=== PATIENT | male | born 1975 | race Caucasian/White ===

== ENCOUNTER 2017-04-29 15:14 | Inpatient (IN) | payer BC ==
[2017-04-29] MEDS: Dextrose 5%-0.45% NaCl 1,000 ML IV SCH (15:45)
[2017-04-29] MEDS: cefTRIAXone 1 GM Vial IVPUSH SCH (15:45)
[2017-04-29] MEDS ORDERED: Ondansetron 4 MG/2 ML SDV IV PRN (16:09)
[2017-04-29] MEDS ORDERED: Sodium Chloride 0.9% 5 ML Syringe FLUSH PRN (16:09)
[2017-04-29] MEDS ORDERED: Ketorolac 30 MG/ML SDV IVPUSH PRN (16:09)
[2017-04-29] MEDS: Nicotine 14 MG/24 Hr Patch TRDERM SCH (18:03)
[2017-04-29] MEDS: Acetaminophen 325 MG Tab PO PRN (22:52)
[2017-04-30] MEDS: Acetaminophen 325 MG Tab PO PRN (06:01)
[2017-04-30 08:01] LABS: CHLORIDE,CL 97 mmol/L (98-115); SODIUM,NA 134 mmol/L (136-145)
[2017-04-30] MEDS: Dextrose 5%-0.45% NaCl 1,000 ML IV SCH ×3 (08:31→16:27)
[2017-04-30] MEDS: Nicotine 14 MG/24 Hr Patch TRDERM SCH (09:53)
[2017-04-30] MEDS: Omeprazole 20 MG Cap.CR PO SCH (12:26)
[2017-04-30] MEDS: cefTRIAXone 1 GM Vial IVPUSH SCH (16:20)
[2017-05-01] MEDS: Dextrose 5%-0.45% NaCl 1,000 ML IV SCH ×2 (01:00→08:45)
[2017-05-01] MEDS: Acetaminophen 325 MG Tab PO PRN (03:20)
[2017-05-01] MEDS: Omeprazole 20 MG Cap.CR PO SCH (06:27)
[2017-05-01] MEDS: Nicotine 14 MG/24 Hr Patch TRDERM SCH (08:44)
--- NOTE | 2017-05-01 10:41 | PN ---
04/30/2017 PATIENT NAME: EBONI RANGEL CHIEF COMPLAINT: Starting to feel better. Still has ongoing abdominal pain. Nurses reported fever last night, T max of 101.3. Blood cultures were drawn, still pending, however, blood pressure is good. Respiratory rate was 16. O2 sats were 94%. He had no nausea or vomiting. He did have a bowel movement this morning. HISTORY: This is a 42-year-old, obese gentleman, was initially seen at [facility], thought to have some infectious process, however, x-rays did show some colon stools. He was treated for constipation; however, the patient did have a subsequent CT of the abdomen, which did show acute cholecystitis, so he was admitted for antibiotics, fluids, GI rest, and for closer monitoring. DIAGNOSTICS: Abdominal x-ray at [facility] did demonstrate interstitial gas pattern, which was unremarkable; however, no significant small bowel distention. There are rounded densities, which appear to be within the bowel, particular the right mid pelvis, possible ingested capsules. Abdominal pelvic CT showed acute cholecystitis with some common bile duct enhancement, some question regarding underlying cholangitis versus distention of the gallbladder with several stones near the neck. Pericholecystic inflammatory changes tracking into the right abdomen; however, there was also biliary dilatation at common bile duct, so they could not rule out cholangitis. LABORATORY DATA: Labs at [facility]; white count 17,000, percentage neutrophils were 70%. Glucose, sodium, BUN and creatinine, calcium, liver functions are all unremarkable. Amylase is low at 46. PHYSICAL EXAMINATION: GENERAL: The patient is alert and oriented. ABDOMEN: He has large body abdomen habitus. He does have good bowel tones. LUNGS: Clear to auscultation. CV: Without murmur. S1-S2 audible. Normal rhythm. Normal rate. Positive Villalba sign. However, slight good bowel tones. Intake and output: Approximately 2900 in with 1000 out. IMPRESSION/PLAN: Acute cholecystitis seemed to be improving clinically. We will continue with Rocephin 1 g every 24 hours. May add bananas and toast to his diet, otherwise he is stay on clear liquids. White count down to 12.3 this morning. The patient most likely will have to have a cholecystectomy in approximately two weeks to one month. Secondary problems include depression, essential hypertension, tobacco use disorder, and hyperlipidemia. OVERALL PLAN: Continue IV fluids. Slowly advance diet. To add bananas and toast to his diet today, clear liquids, ambulate around the clinic. Monitor for fever. We will see if there is any concerning blood culture result to report any worsening fever, any worsening abdominal pain. CBC in the a.m. I consulted with Dr. Morgan Mendoza and he agrees with this plan. /[id number]/MODL
[2017-05-01 11:03] VITALS: BP 122/71
[2017-05-01] MEDS: cefTRIAXone 1 GM Vial IVPUSH SCH (11:46)
--- NOTE | 2017-05-02 09:53 | DISCH ---
FINAL DIAGNOSES: Acute cholecystitis, clinically improving. Obesity. Cholelithiasis. OTHER CHRONIC MEDICAL CONDITIONS: Essential hypertension, stable; Tobacco use disorder, now on replacement therapy; Hyperlipidemia; Depression. BRIEF HISTORY: This 42-year-old gentleman, who had been complaining of some abdominal pain for about 48 to 72 hours prior to being admitted, he had initially seen a provider at the [facility], was treated for some mild constipation and, however, a subsequent CT due to ongoing and persistent pain did demonstrate acute cholecystitis. He had been having some epigastric region pain and also some right upper quadrant pain, so he was admitted in the hospital for further treatment including IV fluids, clear liquids, IV antibiotics of Rocephin and nonsteroidals for pain control, and bowel rest, and monitor for any signs and symptoms of cholangitis. HOSPITAL COURSE: Hospital course went well. He never became hemodynamically unstable, however, he had, had ongoing fevers, even though they were titrating down. Temperature max in the hospital was 101.3. Blood cultures were drawn; after one day growth, no growth. Temperature did titrate down, however, prior to being discharged, he did have a slight fever of 99.4, which was about 4 in the morning prior to being discharged. Blood pressure was 112/71, O2 sats 93%. We were giving IV Rocephin 1 g every 24 hours. LABS: [facility]: White count 17,000 that did trend down, it was 7.9 on discharge. Sodium 134, potassium 3.5. AST, ALT, total bilirubin all normal. Lipase 05/01/2017, in the hospital was 106, which was normal. He was placed on IV fluids. He was well hydrated. We did advance diet day before discharge, to add toast and bananas to his clear liquid diet. The patient did have good bowel tones. His pain was much improved on discharge. He had no jaundice, did have ongoing bowel movements, PPI was given. He was given Toradol. DIAGNOSTICS: Abdominal and pelvis CT on admission showed cholecystitis and CT findings of acute cholecystitis. MEDICATIONS: 1. Nicotine patch replacement therapy on discharge, (newly added) 2. Levaquin 500 mg p.o. daily x5 days, (newly added). 3. Advil 400 mg p.o. q.8 hours with food (newly added). DISPOSITION: The patient will be discharged from the hospital. This is against medical advice. Talked to the surgeon, Dr. Mendoza. We tried everything we could to convince the patient to stay due to his possibility of cholangitis, however, his white count and temp is coming down, The patient is feeling overall better. He does agree to ongoing p.o. fluids, avoiding fat or fried foods, to report any jaundice, worsening abdominal pain, fever, vomiting, sweatiness. He agreed to take his blood pressure at home, report any systolic blood pressure less than 100. In brief, he will be followed up in the [facility] tomorrow. He will receive labs to include LFTs and WBC. MEDICAL DECISION MAKING: Greater than 40 minutes was spent on this discharge planning, process, consultation, patient education. /[id number]/MODL MTDD
== END 2017-05-01 12:00 | disposition home or self-care (01) ==
LOC: KA.MS 15:14
PROVIDERS: ADMIT Family Medicine; ATTEND Family Medicine
DX: K80.00 Calculus of gallbladder with acute cholecystitis without obstruction (principal); E66.9 Obesity, unspecified; I10 Essential (primary) hypertension; F17.200 Nicotine dependence, unspecified, uncomplicated; E78.5 Hyperlipidemia, unspecified; F32.9 Major depressive disorder, single episode, unspecified; Z68.31 Body mass index [BMI] 31.0-31.9, adult; R10.10 Upper abdominal pain, unspecified; D72.829 Elevated white blood cell count, unspecified; K80.10 Calculus of gallbladder with chronic cholecystitis without obstruction
CPT/HCPCS: 36415; 74177; 80053; 83690; 85025; 85048; 87040; A9270-GY; J0696; J1885; J7042; Q9967

== ENCOUNTER 2017-05-09 09:17 | Observation (INO) | payer BC ==
[~2017-05-09 09:17] MED LIST: Bupivacaine 0.5%/EPINEPHrine 1:200,000 30 ML SDV ONE; Dexamethasone 4 MG/ML SDV ONE; Lactated Ringers 1,000 ML ONE; Midazolam 1 MG/ML 2 ML SDV ONE; Propofol 200 MG/20 ML SDV ONE; ceFAZolin 1 GM Vial ONE; fentaNYL 250 MCG/5 ML SDV ONE
[2017-05-09] MEDS ORDERED: Lactated Ringers 1,000 ML IV SCH ×3 (09:30→16:45)
[2017-05-09] MEDS: Lactated Ringers 1,000 ML ONE ×2 (09:55→14:20)
[2017-05-09] MEDS ORDERED: ceFAZolin 1 GM Vial IV ONE ×2 (10:36)
[2017-05-09] MEDS ORDERED: Succinylcholine/Normal Saline 200 MG/10 ML Syringe IV ONE (10:36)
[2017-05-09] MEDS ORDERED: Rocuronium 50 MG/5 ML Vial IV ONE (10:36)
[2017-05-09] MEDS ORDERED: Dexamethasone 4 MG/ML SDV IV ONE ×2 (10:36)
[2017-05-09] MEDS ORDERED: fentaNYL 100 MCG/2 ML SDV IV ONE ×2 (10:36)
[2017-05-09] MEDS ORDERED: NEOSTIGMINE METHYLSULFATE 5 MG/10 ML IV ONE (10:36)
[2017-05-09] MEDS ORDERED: Albuterol HFA 18 Gm Inhaler INH ONE ×2 (10:36)
[2017-05-09] MEDS ORDERED: Ondansetron 4 MG/2 ML SDV IV ONE (10:36)
[2017-05-09] MEDS ORDERED: fentaNYL 250 MCG/5 ML SDV IV ONE ×2 (10:36)
[2017-05-09] MEDS ORDERED: Propofol 200 MG/20 ML SDV IV ONE (10:36)
[2017-05-09] MEDS ORDERED: Midazolam 1 MG/ML 2 ML SDV IV ONE ×2 (10:36)
[2017-05-09] MEDS ORDERED: ePHEDrine 50 MG/ML SDV IV ONE ×2 (10:36)
[2017-05-09] MEDS ORDERED: Bupivacaine 0.5%/EPINEPHrine 1:200,000 30 ML SDV INFILT ONE (10:57)
[2017-05-09] MEDS ORDERED: ceFAZolin 1 GM Vial ONE (10:57)
[2017-05-09] MEDS ORDERED: Sodium Chloride 0.9% 20 ML SDV ONE (10:57)
[2017-05-09] MEDS ORDERED: Sodium Chloride 0.9% 5 ML Syringe FLUSH PRN (11:00)
[2017-05-09] MEDS ORDERED: EPINEPHrine 1:10,000 1 MG/10 ML Syringe ONE ×2 (11:33→12:38)
[2017-05-09] MEDS ORDERED: fentaNYL 100 MCG/2 ML SDV ONE ×2 (12:24→13:17)
--- NOTE | 2017-05-09 14:20 | PCM.OPNOTE ---
- General Post-Op/Procedure Note Date of Surgery/Procedure: 05/09/17 Operative Procedure(s): Laparoscopy cholecystectomy and placement of a round Royal-Kinney drain Findings: severe chronic cholecystitis and cholelithiasis was noted during surgery. Extensive adhesions of omentum to the gallbladder and also at the neck of the gallbladder. Partial hydrops of the gallbladder. Pre Op Diagnosis: Chronic cholecystitis and cholelithiasis. Post-Op Diagnosis: Chronic cholecystitis and cholelithiasis. Hydrops of the gallbladder. Extensive adhesions noted within the abdomen. Anesthesia Technique: General ET Tube Other Anesthesia Type: Gen. Primary Surgeon: Morgan Mendoza Surgical Drain/Tube Type: Royal Kinney Round Drain Complications: None Condition: Good Free Text/Narrative:: INFORMED CONSENT: This patient is here today because of chronic cholecystitis and cholelithiasis. The operative procedure is laparoscopic cholecystectomy. The operative procedure and risks were discussed including all possible complications including infection, pain, bleeding, bile duct injury, internal organ injury, conversion to open procedure, reoperation, PE, . Anesthetic complications were handled by [employer]. The patient understands well and wishes to proceed. OPERATION PERFORMED: Laparoscopic cholecystectomy and placement of round Royal-Kinney drain in the rik hepatis PROCEDURE: The patient was kept in the supine position and a satisfactory general anesthetic was administered via endotracheal tube. The abdomen was thoroughly prepped and draped in the usual fashion. The supraumbilical fold was infiltrated with 1 mL of Marcaine 0.5% and a curvilinear incision was made. The incision was deepened through the subcutaneous tissue until we came down upon the fascial layer. We then held the fascial layer with two Rojelio clamps and then introduced a Verre's needle directly into the abdominal cavity. The position of the needle was ascertained by the aspiration of a small quantity of air, free flow of saline, negative aspiration of blood. We then instilled CO2 gas into the abdominal cavity and developed an abdominal pressure of approximately 15 mm/Hg. At this point we removed the Verre's needle and reintroduced it over a sheath. This was followed by a 5/12.5 trocar and a camera. Inspection revealed a chronically inflamed gallbladder with tight omental adhesions. The omental pad was quite thick. The rest of the abdominal contents were normal to visualization. Two 5 mm trocars were placed in the right hypochondriac region, one in the right midclavicular and the second on the anterior clavicle line and a third 11.5 trocar was inserted in the subxiphoid position under direct vision. The patient was then kept in the reverse Trendelenburg position with a slight tilt to the left side. The two ratchets were placed one on the fundus and one at the neck of the gallbladder. Dissection was begun at the neck of the gallbladder and the omentum was carefully dissected away from the gallbladder. A combination of suction drain, dissectors and hook cautery were used. The fat in this area was quite immense. An extra 11 mm port was introduced over the anterior abdomen left of the midline and a fan retractor was used to retract his omentum and small bowel. We carefully dissected the cystic artery and cystic duct separately and encircled both structures at approximately 1 to 1-1/2 cm. The critical view of Strasberg was obtained along with the cystic plate. We ligated each structure separately using endo clips. When ligating the cystic duct we made sure not to encroach upon the common duct in any way. We then used a hook cautery and gently dissected the gallbladder off its bed. the gallbladder wall was quite thick and it could not be removed completely. We left the posterior portion of the gallbladder wall at its superior end and cauterized this extensively. The base of the gallbladder fossa was gently cauterized for additional hemostasis. The gallbladder was retrieved through the umbilical port using an Endobag. A large stone was removed using Endo bag.The rik hepatis was thoroughly irrigated with normal saline, most of which was aspirated out. A round Royal-Kinney drain was left in the rik hepatis to help with postoperative drainage because of the extensive nature of the adhesions and the difficult nature of the dissection. The abdomen was then slowly deflated and prior to removal of the last trocar we completely deflated the abdomen. The trocar sites were washed with Betadine solution and the fascial layer was closed with 0 Polysorb and the skin was closed using 4.0 Polysorb in a subcuticular fashion. The drain was held with 0 Polysorb suture. We then instilled approximately 20 mL of Marcaine 0.5% with epinephrine between the five sites. Sterile pressure dressings were applied. The patient tolerated the procedure well. Blood loss was approximately 50 cc.There were no operative complications. Sponge, needle, and instrument count were correct.
[2017-05-09] MEDS ORDERED: Albuterol 0.083% 2.5 MG/3 ML Neb Soln ONE (14:22)
[2017-05-09] MEDS ORDERED: Ipratropium 0.02% 0.5 MG/2.5 ML Neb Soln ONE ×3 (14:22→14:25)
[2017-05-09] MEDS ORDERED: fentaNYL 100 MCG/2 ML SDV IVPUSH PRN (14:30)
[2017-05-09] MEDS ORDERED: Albuterol/Ipratropium 3.0-0.5 MG/3 ML Neb Soln NEB ONE (14:30)
[2017-05-09] MEDS: Morphine 2 MG/ML Syringe IVPUSH PRN ×3 (14:35→15:00)
[2017-05-09] MEDS: Lactated Ringers 1,000 ML IV SCH ×2 (15:35→16:40)
[2017-05-09] MEDS ORDERED: GI Cocktail 45 ML BOTTLE PO SCH (16:00)
[2017-05-09] MEDS ORDERED: Ondansetron 4 MG/2 ML SDV IVPUSH SCH (16:00)
[2017-05-09] MEDS ORDERED: Sodium Chloride 0.9% 500 ML IV SCH ×2 (16:08→22:33)
[2017-05-09] MEDS ORDERED: Pantoprazole 40 MG Vial IVPUSH SCH (16:45)
[2017-05-09] MEDS ORDERED: Pantoprazole 40 MG Vial IVPUSH ONE (17:00)
[2017-05-09] MEDS ORDERED: Ketorolac 30 MG/ML SDV IVPUSH PRN (17:27)
[2017-05-09] MEDS: Acetaminophen 325 MG Tab PO SCH (17:38)
[2017-05-09] MEDS: Nicotine 14 MG/24 Hr Patch TRDERM SCH (17:38)
[2017-05-09] MEDS: Albuterol/Ipratropium 3.0-0.5 MG/3 ML Neb Soln NEB SCH ×6 (17:49→23:40)
[2017-05-09] MEDS: Ondansetron 4 MG/2 ML SDV IV SCH ×2 (18:12→23:15)
[2017-05-09] MEDS ORDERED: cefTRIAXone 1 GM Vial IVPUSH SCH ×2 (21:25→22:00)
[2017-05-09] MEDS ORDERED: Sodium Chloride 0.9% 1,000 ML IV ONE (21:32)
[2017-05-09 21:44] LABS: O2 DELIVERY DEVICE NASAL CANNULA
[2017-05-09] MEDS ORDERED: cefTRIAXone 1 GM in Sodium Chloride 0.9% 50 ML IV ONE (21:45)
[2017-05-09 21:48] LABS: PCO2 ARTERIAL 36 mmHG (35-45)
[2017-05-09 21:49] LABS: BASE EXCESS ARTERIAL -4 mmol/L (-2-3); BICARBONATE,ARTERIAL 21.2 mmol/L (22-26); O2 SATURATION ARTERIAL 92 % (95-98)
[2017-05-09 21:50] LABS: PO2 ARTERIAL 66 mmHG (80-105)
[2017-05-09] MEDS ORDERED: Sodium Chloride 0.9% 250 ML ONE (22:06)
[2017-05-09] MEDS: Piperacillin/Tazobactam/Dext 3.375 GM in Premix Bag 1 BAG IV SCH (22:16)
[2017-05-09] MEDS: Sodium Chloride 0.9% 1,000 ML IV SCH (23:38)
[2017-05-09 23:42] LABS: CHLORIDE,CL 101 mmol/L (98-115); SODIUM,NA 136 mmol/L (136-145)
[2017-05-09] MEDS: metroNIDAZOLE/Normal Saline 500 MG in Premix Bag 1 BAG IV SCH (23:46)
[2017-05-10] MEDS ORDERED: Albuterol/Ipratropium 3.0-0.5 MG/3 ML Neb Soln NEB SCH
[2017-05-10] MEDS ORDERED: Sodium Chloride 0.9% 250 ML IV SCH (01:00)
[2017-05-10] MEDS: Acetaminophen 325 MG Tab PO SCH ×4 (01:48→17:07)
[2017-05-10] MEDS: Albuterol/Ipratropium 3.0-0.5 MG/3 ML Neb Soln NEB SCH ×9 (01:50→21:03)
[2017-05-10] MEDS: Piperacillin/Tazobactam/Dext 3.375 GM in Premix Bag 1 BAG IV SCH ×4 (04:02→21:03)
[2017-05-10] MEDS: Ondansetron 4 MG/2 ML SDV IV SCH (05:00)
[2017-05-10] MEDS: metroNIDAZOLE/Normal Saline 500 MG in Premix Bag 1 BAG IV SCH ×3 (05:52→18:10)
[2017-05-10] MEDS ORDERED: Sodium Chloride 0.9% 250 ML ONE (06:34)
[2017-05-10] MEDS: Sodium Chloride 0.9% 1,000 ML IV SCH ×2 (06:46→14:18)
[2017-05-10 08:01] LABS: CHLORIDE,CL 106 mmol/L (98-115); SODIUM,NA 140 mmol/L (136-145)
--- NOTE | 2017-05-10 08:02 | PN ---
05/09/2017PATIENT NAME: EBONI RANGEL SUBJECTIVE: There is very pleasant, 42-year-old gentleman had a laparoscopic cholecystectomy this morning. He was found to have hydrops of the gallbladder and question gangrene of the gallbladder wall. Laparoscopy was accomplished, although somewhat difficulty. The patient has a history of chronic smoking for many years. The operative procedure was uneventful. A round PANCHO drain was left in the right upper quadrant region. Postoperatively, the patient has had trouble with hypotension and he was given a total of 4600 mL of fluid from the time of the operation. Output was 600 mL. The PANCHO is draining some serous fluid. His blood pressures currently have been running about 93 systolic by diastolic 68. Pulse was 118 after recent respiratory therapy treatment. The patient states that as long as he lies flat, he feels well; when he sits up, he feels a little dizzy and complains of abdominal pain. He has some moderate amount of abdominal distention. OBJECTIVE: GENERAL: He is alert and well oriented to space, time, and person. HEENT: His tongue is dry. LUNGS: His lungs are clinically clear. HEART: Tachycardic rhythm. ABDOMEN: Moderately distended. Sounds are distant. EXTREMITIES: Peripheral pulses are good, and the peripheries are warm. FINAL DIAGNOSES: 1. Status post laparoscopic cholecystectomy for chronic cholecystitis, cholelithiasis, and question gangrene in the gallbladder. He has had hydrops of the gallbladder. Postoperatively, the problems are:. a. Hypotension, probably due to inadequate fluid intake. Question rule out remote possibility of sepsis, he is being covered with Rocephin and also Zosyn. We did add Flagyl to his therapeutic regimen. We will give him a bolus of normal saline at 1000 mL now. We will get ABGs, CBC, and lactic acid level. CBC showed hemoglobin to be stable at 12.7 and white count was 16,000. Left shift. As one would expect. X-ray also showed bilateral atelectasis, so he is on DuoNebs very frequently. I have also asked him to use the inspirometer while he is in the bed. /[id number]/MODL
--- NOTE | 2017-05-10 08:05 | PN ---
05/09/2017PATIENT NAME: EBONI RANGEL I did contact the telegraphic typewriter operator chief at [facility] regarding this patient. I discussed the fact that the patient's blood pressure was 124/68, temperature was 100.3, pulse was 114. His oxygen saturation was 95% at 3 L. His total intake was 4600, output was 600 mL. His blood gases are also discussed, pH was 7.38, PO2 was 66, total CO2 was 22 (normal 23), bicarbonate was 21.2 (normal 22). His lactic acid level was 6.2 (normal 2). The main discussion was held regarding the elevated lactic acid levels. We discussed that we would additionally get LFTs and renal function tests to rule out any renal injury. Also, repeat lactic acid in 2 hours or so. If the lactic acid level keeps climbing up, then a transfer of this patient may be necessary. We will continue with IV antibiotics with Zosyn and Flagyl. Continue IV fluids giving a bolus of 1000 mL of normal saline. /[id number]/MODL
[2017-05-10] MEDS ORDERED: Lidocaine 2% 100 MG/5 ML Syringe IVPUSH PRN (08:42)
[2017-05-10] MEDS ORDERED: EPINEPHrine 1:10,000 1 MG/10 ML Syringe IVPUSH PRN (08:42)
[2017-05-10] MEDS ORDERED: Atropine 0.1 MG/ML 10 ML Syringe IVPUSH PRN (08:42)
[2017-05-10] MEDS ORDERED: Nitroglycerin 0.4 MG Tab.SL SL PRN (08:42)
[2017-05-10] MEDS ORDERED: Bisacodyl 10 MG Supp RECTAL ONE ×2 (08:59→18:06)
[2017-05-10] MEDS: Nicotine 14 MG/24 Hr Patch TRDERM SCH (09:24)
[2017-05-10] MEDS: Pantoprazole 40 MG Vial IVPUSH SCH (09:27)
[2017-05-10] MEDS: Phenol 1.4% Oral Spray 177 ML Bottle MUCMEM PRN ×3 (09:36→17:08)
[2017-05-10] MEDS: Ondansetron 4 MG/2 ML SDV IVPUSH SCH ×4 (09:38→21:03)
[2017-05-10] MEDS ORDERED: Morphine 4 MG/ML Syringe IVPUSH PRN (10:00)
[2017-05-10] MEDS: Ketorolac 30 MG/ML SDV IVPUSH PRN ×2 (10:21→21:55)
[2017-05-10] MEDS ORDERED: GI Cocktail 45 ML BOTTLE PO PRN (15:21)
[2017-05-10] MEDS ORDERED: NS + KCl 20mEq/L 1,000 ML IV SCH ×2 (18:15→19:45)
[2017-05-11] MEDS: metroNIDAZOLE/Normal Saline 500 MG in Premix Bag 1 BAG IV SCH ×3 (00:45→12:08)
[2017-05-11] MEDS: Albuterol/Ipratropium 3.0-0.5 MG/3 ML Neb Soln NEB SCH ×4 (00:45→13:27)
[2017-05-11] MEDS: Acetaminophen 325 MG Tab PO SCH ×3 (00:45→12:05)
[2017-05-11] MEDS: Ondansetron 4 MG/2 ML SDV IVPUSH SCH ×3 (00:45→09:14)
[2017-05-11] MEDS: Piperacillin/Tazobactam/Dext 3.375 GM in Premix Bag 1 BAG IV SCH ×2 (03:07→10:08)
[2017-05-11 08:02] LABS: CHLORIDE,CL 106 mmol/L (98-115); SODIUM,NA 141 mmol/L (136-145)
--- NOTE | 2017-05-11 08:11 | PN ---
05/10/2017PATIENT NAME: EBONI RANGEL SUBJECTIVE: The patient is a 42-year-old gentleman who had a lap cholecystectomy yesterday at the [facility]. I am seeing this morning for morning report. The patient is alert, well oriented to space, time, and person. He complains of abdominal pain and is requesting the removal of the NG tube that was placed last night, otherwise, he does not complain of any other major issues. He has not passed any flatus. He denies having a cough. He is using the inspirometers in the room as well as the DuoNeb treatments every 2 hours. OBJECTIVE: VITAL SIGNS: As follows, his temperature through the night T-max was 100.5, this morning it is 99.1. His pulse is 112, blood pressure is 130/65. His oxygen saturation is 95% on 3 L. His intake and output, he had a total of roughly 4760 mL from yesterday morning and his output was 2160. Balance is 2600 negative. GENERAL: The patient is alert. He is not sweaty. His color is slightly pale. Tongue is moist. Eyes are negative. No jaundice. NECK: Supple. LUNGS: Reveal a few rales present in the base of both lungs. HEART: Tachycardic rhythm slightly. ABDOMEN: Soft, slight distention. Bowel sounds are slow but present. NG tube is still present. EXTREMITIES: Normal. No leg tenderness. LABORATORY DATA: His hemoglobin is 11.4, yesterday it was 12.7, the drop is due to dilutional causes. His white count has dropped from 16.7 to 13.1, also the left shift. His sodium, potassium, and chloride are all normal. Lactic acid level has dropped down to normal at 1.4, yesterday it was 5.2. Liver function tests are normal. FINAL DIAGNOSIS: Laparoscopic cholecystectomy, day #1. 2. Medical complications of Hypoxia from excessive smoking. and increased lactic acid level now normalized. Atelectasis from previous 2. The patient is stable. IMPRESSION: Status post laparoscopy cholecystectomy for possibly an acute gangrenous gallbladder with gallstones and severe inflammation. The patient is very stable at this time. We will drop his IVs down to 150 mL an hour. We will remove one of the IVs. We will get him up walking around to see if we can increase the peristalsis. We will also give him rectal suppository to increase rectal peristalsis. Continue with antibiotics. Drop the DuoNeb to q.4h. and continue inspirometers as often as he can tolerate it. We will see how he is later this afternoon. /[id number]/MODL Patient's condition continues to improve the afternoon. He did have a bowel movement and therefore the NG tube was removed. IVs were slowed down. Her respiratory status also improved. MTDD
[2017-05-11] MEDS: Nicotine 14 MG/24 Hr Patch TRDERM SCH (09:14)
[2017-05-11] MEDS: Pantoprazole 40 MG Vial IVPUSH SCH (09:29)
[2017-05-11] MEDS: Ketorolac 30 MG/ML SDV IVPUSH PRN (09:59)
[2017-05-11] MEDS ORDERED: Ondansetron 4 MG/2 ML SDV IVPUSH PRN (10:05)
[2017-05-11] MEDS ORDERED: NS + KCl 20mEq/L 1,000 ML IV SCH (10:15)
--- NOTE | 2017-05-11 11:27 | PN ---
05/11/2017PATIENT NAME: EBONI RANGEL SUBJECTIVE: 42-year-old patient from the [facility]. This is postop day number two for laparoscopy cholecystectomy for gangrenous gallbladder. The patient is definitely doing much better this morning. OBJECTIVE: VITAL SIGNS: Vital signs revealed that his temperature is 98.8, pulse is still slightly rapid at 108. Blood pressure is 126/87. GENERAL: He is alert. He is not jaundiced. Well-oriented to space, time, and person. LUNGS: Fairly clear except for couple of rales present in the right base. ABDOMEN: Slightly distended, but soft. No rebound. PANCHO is draining very minimal amounts of serous fluid at 30 mL. Bowel tones are actively present. The patient did have a bowel movement yesterday. LABORATORY DATA: IVs are running at about 100 mL an hour. His intake and output revealed that his intake for the last 24 hours was 2962, output was 2650. FINAL DIAGNOSES: This patient is laparoscopic cholecystectomy day two, progressing well. Plan is to cut back the IVs further. Continued antibiotics and continue the inspirometer as well as the nebulized treatments with DuoNeb, and we will re-evaluate this patient this afternoon and evening to see if he could go home today or not. /[id number]/MODL
[2017-05-11 14:52] VITALS: BP 127/78
--- NOTE | 2017-05-12 08:11 | PN ---
05/11/2017PATIENT NAME: EBONI RANGEL FINAL DIAGNOSES: Possible acute gangrenous cholecystitis, and cholelithiasis. HOSPITAL COURSE: This 42-year-old gentleman was admitted to the hospital on 05/09/2017, and discharged on 05/11/2017. He was admitted because of a one-week history of increasing right upper quadrant pain and discomfort. Ultrasound was performed in the clinic and which showed a chronically inflamed and gallbladder with evidence of gall stones. The patient actually had symptoms going back for at least a year. Initially, he was treated with conservative management and he was brought in on 05/09/2017, for an elective laparoscopic cholecystectomy. This patient has had a history of chronic smoking for a few years. After being admitted to the hospital, Informed consent was obtained for the patient, and he was taken to the operating room, and under general anesthesia a laparoscopy cholecystectomy was performed. At laparoscopy an acutely gangrenous gallbladder and hydrops of the gallbladder was found. The operative procedure was technically somewhat demanding. This was accomplished however. On the day of surgery, the patient developed hypoxia and dizziness. It was felt to be exacerbation of his COPD and asthma. His laboratory data; hemoglobin was 12.7, white count was 16.7. His ABGs indicated a PO2 of 66, he pCO2 was 36, pH of 7.38. His electrolytes were normal. His lactic acid was high at 5.2. Glucose was 161. He was kept in the hospital and treated with IV fluids and antibiotics consisting of Zosyn and Flagyl. Intensive care consultation was also held with Dr. Adler, an specifications checker at [facility] in [place], because of his elevated lactic acid level. I was advised to monitor his liver function tests and renal tests also. By the morning his condition had improved and his lactic acid level came down to normal. On 05/11/2017, his hemoglobin was 7.3, white count is 10.9. His abdomen was initially distended and was treated with NG tube suction. He also had a round Royal-Kinney drain in the right rik hepatis. His temperature initially was elevated to 99 and on the day of discharge it was normal. His blood pressure was also somewhat low in the beginning, on the day of surgery, and the next day. He was treated with IV fluids, both boluses and in the form of IV fluids. By 05/11/2017, his condition had improved. The NG tube was removed as he was passing gas and having normal flatus. His abdomen distention became better. The round PANCHO drain was removed. The IVs were taken out. He was sent home in a satisfactory condition on 05/11/2017, and placed on Cipro 500 mg b.i.d. for a period of eight days. He is advised to come back to the clinic on Tuesday05/16/2017. He is advised restricted physical activity. No heavy bending, lifting, twisting, or turning. He was advised to take Tylenol for relief of discomfort. Low-fat diet was advised. The patient was instructed to call us if he has any further problems after discharge. /[id number]/MODL
== END 2017-05-11 16:50 | disposition home or self-care (01) ==
LOC: KA.SDS 09:17 → KA.MS 15:30 → OBSVTOIN 05-10 08:52 → INTOOBSV 05-10 08:52 → UNDODISIN 05-11 16:50
PROVIDERS: ADMIT Family Medicine; ATTEND Family Medicine
PROC: 0FT44ZZ Resection of Gallbladder, Percutaneous Endoscopic Approach (ICD-10-PCS; principal; 2017-05-10)
DX: K80.00 Calculus of gallbladder with acute cholecystitis without obstruction (principal); K82.1 Hydrops of gallbladder; J98.11 Atelectasis; E78.5 Hyperlipidemia, unspecified; I10 Essential (primary) hypertension; F32.9 Major depressive disorder, single episode, unspecified; F17.210 Nicotine dependence, cigarettes, uncomplicated; Z79.899 Other long term (current) drug therapy
CPT/HCPCS: 36415; 36600; 47562; 71010; 80053; 80069; 80076; 82803; 83605; 85025; 87040; 94640; A9270; C9113; G0378; G0379; J0171; J0330; J0690; J0696; J1100; J1885; J2250; J2270; J2405; J2543; J2704; J2710; J3010; J3480; J7030; J7040; J7050; J7120; J3490